=== PATIENT | male | born 1980 | race Caucasian/White ===

== ENCOUNTER 2022-12-01 13:15 | Emergency (ER) | payer SELFPAY ==
[~2022-12-01] VITALS: Ht 167.6 cm; Wt 75.7 kg
[2022-12-01 13:25] VITALS: BP_SYST 137; PULSE 95; RESP 20; TEMP 97; O2SAT 95
[2022-12-01] MEDS ORDERED: NACL 0.9% 1,000 ML IV ONE (14:45)
[2022-12-01] MEDS ORDERED: LORazepam 1 MG TABLET PO ONE (14:45)
[2022-12-01 14:59] LABS: BASOPHILS # (AUTO) 0.1 K/uL (0.0-0.2); BASOPHILS % (AUTO) 0.7 % (0.0-2.0); EOSINOPHILS # (AUTO) 0.1 K/uL (0.0-0.4); EOSINOPHILS % (AUTO) 1.2 % (0.0-4.0); HEMATOCRIT 44.5 % (36-54); HEMOGLOBIN 15.5 g/dL (14.0-18.0); LYMPHOCYTES # (AUTO) 2.5 K/uL (1.0-5.5); LYMPHOCYTES % (AUTO) 27.1 % (20.5-51.5); MEAN CORPUSCULAR HEMOGLOBIN 32 pg (27-31); MEAN CORPUSCULAR HGB CONC 35 % (32-36); MEAN CORPUSCULAR VOLUME 91 fL (79.0-98.0); MONOCYTES # (AUTO) 0.5 K/uL (0.0-1.0); MONOCYTES % (AUTO) 5.5 % (1.7-9.3); NEUTROPHILS # (AUTO) 6.1 K/uL (1.8-7.7); NEUTROPHILS % (AUTO) 65.5 % (40.0-70.0); PLATELET COUNT (AUTO) 155 K/uL (130-430); RED BLOOD CELL COUNT(AUTO) 4.89 MIL/uL (4.2-6.2); RED CELL DISTRIBUTION WIDTH 13.6 % (9.0-15.0); WHITE BLOOD COUNT (AUTO) 9.4 K/uL (4.8-10.8)
[2022-12-01 15:15] LABS: ANION GAP 11 (5-15); CARBON DIOXIDE 23 mmol/L (23-29); CHLORIDE 98 mmol/L (98-107); CREATININE 0.69 mg/dL (0.55-1.30); GFR AFRICAN AMERICAN 163 mL/min (>90); GFR NON AFRICAN-AMERICAN 134 mL/min (>90); GLUCOSE 220 mg/dL (74-106); POTASSIUM 4.1 mmol/L (3.5-5.1); SODIUM SERUM 132 mmol/L (136-145); UREA NITROGEN, BLOOD 12 mg/dL (8-21)
[2022-12-01 16:39] VITALS: BP_SYST 144; PULSE 86; RESP 18; TEMP 97.6; O2SAT 96
== END 2022-12-01 16:46 | disposition home or self-care (01) ==
LOC: SED 13:15
DX: F41.9 Anxiety disorder, unspecified (principal); G47.00 Insomnia, unspecified; F10.10 Alcohol abuse, uncomplicated; I10 Essential (primary) hypertension; Z79.899 Other long term (current) drug therapy; Y90.6 Blood alcohol level of 120-199 mg/100 ml
CPT/HCPCS: 99285; 96360; 71045; 80048; 85025; 84484; 36415; 93005; J7030